=== PATIENT | female | born 1975 | race Caucasian/White ===

== ENCOUNTER → 2020-07-26 | Outpatient (CLI) | payer SELFPAY | LOC: ZCOL.LAB 17:32 | DX: Z20.828 Contact with and (suspected) exposure to other viral communicable diseases (principal) ==

== ENCOUNTER 2024-07-13 14:58 | Emergency (ER) | payer OTHER ==
[~2024-07-13] VITALS: Ht 167.6 cm; Wt 87.3 kg
[2024-07-13 15:55] LABS: COLLECTION METHOD RANDOM VOIDED
[2024-07-13 16:00] LABS: URINE APPEARANCE CLEAR (CLEAR/HAZY); URINE BLOOD NEGATIVE (NEGATIVE); URINE COLOR YELLOW (YELLOW); URINE GLUCOSE NEGATIVE (NEGATIVE); URINE KETONE NEGATIVE (NEGATIVE); URINE NITRATE NEGATIVE (NEGATIVE); URINE PROTEIN(semi-quant) NEGATIVE (NEGATIVE)
[2024-07-13 16:12] LABS: TRICYCLIC ANTIDEPRESS URINE NEGATIVE (NEGATIVE)
[2024-07-13 16:19] LABS: BASO # 0.1 K/mm3 (0.0-0.2); BASO % 0.7 % (0.0-2.0); EOS # 0.2 K/mm3 (0.0-0.7); EOS % 3.4 % (0.0-4.0); GRAN # 4.3 K/mm3 (1.4-6.5); GRAN % 60.3 % (42.2-75.2); HEMOGLOBIN 11.4 g/dl (12.5-16.0); LYMPH # 1.9 K/mm3 (1.2-3.4); LYMPH % 26.4 % (20.0-51.0); MEAN CELL VOLUME 82 fl (80.0-100.0); MEAN CORPUSCULAR HEMOGLOBIN 27 pg (27-31); MEAN CORPUSCULAR HGB CONC 33 g/dl (33.0-37.0); MEAN PLATELET VOLUME 10.3 fl (7.4-10.4); MONO # 0.6 K/mm3 (0.1-0.6); MONO % 9.1 % (1.7-9.3); PLATELET COUNT 279 K/mm3 (130-400); REDCELL DISTRIBUTION WIDTH-CV 14.6 % (11.5-14.5)
[2024-07-13 16:20] LABS: HEMATOCRIT 34.3 % (37.0-47.0)
[2024-07-13] MEDS ORDERED: LORazepam 1 MG TAB PO ONE (16:30)
[2024-07-13 16:39] LABS: ALANINE AMINOTRANSFERASE 16 U/L (0-55); ALBUMIN 3.8 g/dL (3.5-5.0); ALCOHOL(ethanol),MEDICAL < 10 mg/dL (0-10); ALKALINE PHOSPHATASE 65 U/L (40-150); ANION GAP 9 mmol/L (7-16); AST,SGOT 20 U/L (5-34); BILIRUBIN,TOTAL 1.5 mg/dL (0.2-1.2); BLOOD UREA NITROGEN 8 mg/dL (10-20); CALCIUM 9.8 mg/dL (8.4-10.2); CHLORIDE 107 mEq/L (98-107); CREATININE, serum 0.87 mg/dL (0.57-1.11); GLUCOSE 100 mg/dL (70-99); POTASSIUM 4.2 mEq/L (3.5-4.5); SALICYLATE < 5.0 mg/dL (15.0-30.0); SODIUM 141 mEq/L (136-145); TOTAL PROTEIN 6.6 g/dl (6.2-8.1)
[2024-07-13 16:58] LABS: TSH w REFLEX 1.864 uIU/mL (0.350-4.940)
[2024-07-13] MEDS ORDERED: LYRICA 75MG CAP75 MG PO (18:19)
[2024-07-13] MEDS ORDERED: ZYRTEC 10MG10 MG PO (18:20)
[2024-07-13] MEDS ORDERED: ZOLOFT 50MG50 MG PO (18:20)
[2024-07-13 19:12] VITALS: TEMP 97.9
[2024-07-13] MEDS ORDERED: clonazePAM 1 MG TAB PO ONE (21:15)
[2024-07-14] MEDS ORDERED: Pregabalin 75 MG CAP PO ONE (08:30)
[2024-07-14] MEDS ORDERED: Cetirizine 10 MG TAB PO ONE (08:30)
[2024-07-14 11:12] VITALS: BP 104/65; PULSE 83
== END 2024-07-14 11:19 | disposition short-term general hospital (02) ==
LOC: COL.ER 14:58
PROVIDERS: Emergency Medicine
DX: R45.851 Suicidal ideations (principal); F19.90 Other psychoactive substance use, unspecified, uncomplicated; Z87.891 Personal history of nicotine dependence